=== PATIENT | male | born 1965 | race Caucasian/White ===

== ENCOUNTER 2016-07-07 09:40 | Emergency (ER) | payer BC ==
[~2016-07-07] VITALS: Ht 170.2 cm; Wt 80.0 kg
[~2016-07-07 09:40] MED LIST: ATROPINE 1 MG/10 ML SYRINGE ONE; CA CHLORIDE 10% 10 ML SYRINGE ONE; EPINEPHrine 0.1 MG/ML SYG ONE; ICOS1CAP PO; PITA4TAB PO
[2016-07-07 09:44] VITALS: Ht 170.2 cm; Wt 80.0 kg
[2016-07-07] MEDS ORDERED: FAMOTIDINE 20 MG INJ INJ STA (09:52)
[2016-07-07] MEDS ORDERED: morphine 2 MG INJ IV STA (09:52)
[2016-07-07] MEDS ORDERED: ONDANSETRON 4 MG INJ IV STA (09:52)
[2016-07-07] MEDS ORDERED: SOD CHLORIDE 0.9% 1,000 ML IV STA (09:52)
[2016-07-07] MEDS ORDERED: NYST1000 PO (10:27)
[2016-07-07] MEDS ORDERED: DIPH12.59 PO (10:28)
[2016-07-07] MEDS ORDERED: LIDO20SO19 MM (10:28)
[2016-07-07] MEDS ORDERED: CAPE500T11 PO (10:30)
[2016-07-07] MEDS ORDERED: ONDA8TAB83 PO (10:30)
[2016-07-07 10:31] LABS: ALBUMIN 3.3 g/dl (3.3-4.9)
[2016-07-07] MEDS ORDERED: AMLO1TAB68 PO (10:31)
[2016-07-07 10:32] LABS: POTASSIUM 3.1 mmol/L (3.5-5.1)
[2016-07-07 10:34] LABS: ALBUMIN/GLOBULIN RATIO 1.32; BILIRUBIN,DIRECT 2.1 mg/dl (0.00-0.20); BILIRUBIN,INDIRECT 1.8 mg/dl (0-1.1); BILIRUBIN,TOTAL 3.9 mg/dl (0.2-1.3); CREATININE 1.54 mg/dl (0.61-1.24); TOTAL PROTEIN 5.8 g/dl (6.1-8.1)
[2016-07-07 10:35] LABS: CALCIUM 7.8 mg/dl (8.4-10.2)
[2016-07-07 10:38] LABS: INR 3.37; PROTIME 34.6 Sec (12.2-14.2); PT RATIO 2.7
[2016-07-07 10:39] LABS: PARTIAL THROMBOPLASTIN TIME 41.7 Sec (25.0-35.0)
[2016-07-07 10:46] LABS: TROPONIN-I 0.033 ng/ml (0.00-0.12)
[2016-07-07] MEDS ORDERED: SODIUM CHLORIDE 0.9% 1L BAG IV* STA (10:46)
[2016-07-07] MEDS ORDERED: PIPER-TAZO 3.375 GM IV (PMX) 100 ML IVPB STA (10:46)
[2016-07-07 11:52] LABS: HEMATOCRIT 43.9 % (42.0-52.0); HEMOGLOBIN 14.9 g/dl (14.0-18.0); MEAN CORPUSCULAR HEMOGLOBIN 26.5 pg (29.0-33.0); MEAN CORPUSCULAR HGB CONC 33.9 g/dl (32.0-37.0); MEAN CORPUSCULAR VOLUME 78.3 fl (82.0-101.0); RED BLOOD COUNT 5.61 10^6/ul (4.70-6.10)
--- NOTE | 2016-07-07 11:58 | RADRPT ---
PROCEDURE: US Abdomen (right upper quadrant). CLINICAL INDICATION: Elevated liver enzymes. TECHNIQUE: Multiple real-time longitudinal and transverse images of the right upper quadrant of th e abdomen were acquired utilizing a curved array transducer. Images were reviewed on a high-resoluti on PACS workstation. COMPARISON: None FINDINGS: The liver is normal in size and diffusely increased in echogenicity. There is no focal hepatic lesion. The gallbladder is normal with no stones or wall thickening. There is no pericholecystic fluid katelyn ection. The bile ducts are normal with the common bile duct measuring 2.4 mm in diameter. The visualized portions of the pancreas are unremarkable with obscuration of the tail of the pancrea s. No free fluid is present. The right kidney measures 10.3 x 5.0 x 5.7 cm. There is normal echogenicity of the right kidney. There is no perinephric fluid collection. No hydronephrosis, mass, or calculus is seen. IMPRESSION: 1. Fatty metamorphosis of the liver. 2. Otherwise normal right upper quadrant abdomen ultrasound. RPTAT: QQ .Chemo Talavera MD, MD Date Time Electronically viewed and signed by .Chemo Talavera MD, on 07/07/2016 11:57 .R/
[2016-07-07 12:00] LABS: CONDITION 1; LH ANALYZER COMMENTS 1; MEAN PLATELET VOLUME 7.8 fl (7.4-10.4)
[2016-07-07 12:03] LABS: PLATELET COUNT 20 10^3/UL (140-440)
--- NOTE | 2016-07-07 13:11 | RADRPT ---
PROCEDURE: CT Abdomen and Pelvis without contrast CLINICAL INDICATION: Syncopal episode lasting more than 10 days ago hematemesis, nausea/vomiting TECHNIQUE: Transaxial images were obtained through the abdomen and pelvis on a multi-slice scanner without the intravenous contrast administration. No oral contrast had previously been given. Sagit steven and coronal re-formations were subsequently reconstructed. One or more of the following dose reduction techniques were used: - Automated exposure control. - Adjustment of the mA and/or kV according to patient size. - Use of iterative reconstruction technique. Radiation dose: CTDIvol = 15.17 mGy; DLP = 1000.54 mGy-cm. COMPARISON: Comparison to 05/02/2016 FINDINGS: Lung bases: Discoid atelectasis is seen at the lung bases posteriorly greater on the left than the r ight. No pleural fluid accumulation is evident. Liver: The liver is enlarged and diffusely fatty infiltrated with no focal lesion identified. Gallbladder: The gallbladder lumen is dense but no stone is identified and the wall is not thickened . Bile ducts: The intra and extrahepatic bile ducts are normal in caliber. Pancreas: Appears normal with no mass or inflammation evident. Spleen: Normal in size with no focal lesion. Adrenals: Normal with no mass identified. Kidneys, ureters and bladder: The kidneys are normal in size and there is no mass, pathological calc ification, or hydronephrosis evident. There is no perinephric stranding. The ureters are normal in c aliber and no ureteroliths are identified. The bladder appears unremarkable. Reproductive organs: The prostate is not enlarged. Stomach and bowel: There appears to been a previous right hemicolectomy with a staple line seen at t he right colon. There is no evidence of bowel obstruction or inflammation. The stomach appears unr emarkable. Appendix: The vermiform appendix is not identified. Peritoneum: No free intraperitoneal fluid or air is identified. There is a small fat containing righ t inguinal hernia. Aorta: Normal in caliber with no aneurysmal dilatation. IVC: Unremarkable. Lymph nodes: No pathologically enlarged nodes are identified. Osseous structures: Mild degenerative endplate changes are seen to the spine. Soft tissues: There is stranding within the subcutaneous fat within the right anterior abdomen which likely represents postsurgical change. IMPRESSION: 1. Since the previous CT of 05/02/2016, the right colon has been resected. There is presently no e vidence of bowel obstruction or inflammation. 2. The liver remains mildly enlarged but no as extensively more diffusely fatty infiltrated. No fo efrain lesion is evident. 3. There is no longer a trace of free intraperitoneal fluid. 4. Discoid atelectasis is seen at the lung bases. 5. Otherwise, stable and unremarkable CT scan of the abdomen and pelvis without contrast. Physician Daiana Date Time Electronically viewed and signed by Jose Proctor Physician on 07/07/2016 13:10 /
[2016-07-07 13:32] LABS: LYMPHOCYTES # 0.7 10^3/ul (0.8-2.9); NEUTROPHIL # 0.2 10^3/ul (1.6-7.5)
[2016-07-07 13:34] LABS: ANISOCYTOSIS 1+; MICROCYTOSIS 1+
[2016-07-07 13:35] LABS: PLATELET ESTIMATE PLT APPEAR DECREASED
[2016-07-07] MEDS ORDERED: VANCOMYCIN 1 GM (PMX) 250 ML IVPB SCH (14:00)
[2016-07-07 14:01] LABS: ADD UMIC YES; URINE BILIRUBIN (Dip) NEGATIVE (NEGATIVE); URINE BLOOD (Dip) 3+ (NEGATIVE); URINE COLOR LT. YELLOW (YELLOW); URINE GLUCOSE (Dip) NEGATIVE (NEGATIVE); URINE KETONES (Dip) NEGATIVE (NEGATIVE); URINE LEUKOCYTE ESTERASE (Dip) NEGATIVE (NEGATIVE); URINE NITRITE (Dip) NEGATIVE (NEGATIVE); URINE TOTAL PROTEIN (Dip) 2+ (NEGATIVE); URINE UROBILINOGEN (Dip) 0.2 E.U./dL (0.1-1.0)
[2016-07-07 14:15] LABS: BACTERIA,URINE MODERATE; URINE RBCS 0-2 /HPF ([, 0])
[2016-07-07] MEDS ORDERED: morphine 4 MG/ML VIAL IV STA (14:25)
[2016-07-07] MEDS ORDERED: POTASSIUM CHLORIDE (SR) 20 MEQ TAB PO STA (15:14)
--- NOTE | 2016-07-07 15:33 | ERA ---
ER Documentation Chief Complaint Date/Time DATE: 07/07/16 TIME: 15:11 Chief Complaint syncopal episode today, last chemo 10 days ago, hematemesis x1,melenas HPI This 50-year-old male presented today with hematemesis described as dark almost black vomit, he is also had dark stools lately. Also had a syncopal episode today in which he was sitting on the toilet and fell to his side slightly. He did not fall off the toilet does not think he hit his head. He last had chemotherapy 10 days ago for colon cancer which is also had a resection of. He does abdominal pain upper abdomen as well as in the right midabdomen. Described as a sharp pain. Does have nausea. He feels generally weak tired and "sick". Has had chills but denies fevers. Denies chest pain shortness of breath ROS All systems reviewed and are negative except as per history of present illness. Medications Home Meds Reported Medications Amlodipine Bes/Olmesartan Med (Pat 5-20 mg Tablet) 1 Each Tablet, 1 EACH PO DAILY, TAB 07/07/16 Ondansetron Hcl* (Ondansetron Hcl*) 8 Mg Tablet, 8 MG PO Q8 Y for NAUSEA AND/OR VOMITING, TAB 07/07/16 Capecitabine* (Xeloda*) 500 Mg Tablet, 1500 MG PO BID, TAB TAKE TWO WEEKS OFF 07-06-16 TO 07-20-16 07/07/16 Lidocaine (Lidocaine Viscous) 100 Ml Soln, 5 ML MM Q6 07/07/16 Diphenhydramine Hcl* (Diphenhydramine Hcl*) 12.5 Mg/5 Ml Elixir, 5 ML PO Q6H, ML 07/07/16 Nystatin (Nystatin) 100,000 Unit/1 Ml Oral.susp, 5 ML PO QID, #60 ML 07/07/16 Discontinued Reported Medications Icosapent Ethyl (VASCEPA) 1 Gm Capsule, 1 GM PO DAILY, CAP 05/03/16 Pitavastatin Calcium (Livalo) 4 Mg Tablet, 4 MG PO DAILY, TAB 05/03/16 Allergies Allergies: Coded Allergies: No Known Drug Allergies (Verified Allergy, Unknown, 05/03/16) PMhx/Soc History of Surgery: Yes (refer to EMR) Anesthesia Reaction: No Hx Neurological Disorder: No Hx Respiratory Disorders: No Hx Cardiac Disorders: Yes (HTN;HIGH CHOLESTEROL) Hx Psychiatric Problems: No Hx Miscellaneous Medical Probl: Yes (refer to EMR) Hx Alcohol Use: No Hx Substance Use: No Hx Tobacco Use: No Smoking Status: Never smoker Physical Exam Vitals Vital Signs Date Time Temp Pulse Resp B/P Pulse Ox O2 Delivery O2 Flow Rate FiO2 07/07/16 13:33 98.0 103 16 90/56 99 Room Air 07/07/16 11:21 98.0 85 18 84/57 99 Room Air 07/07/16 10:15 Nasal Cannula 2 07/07/16 09:44 98.1 120 20 90/48 99 Physical Exam Const: [] Mild distress, ill-appearing Head: Atraumatic Eyes: Normal Conjunctiva, EOMI, PERRLA ENT: Normal External Ears, Nose and Mouth. No evidence of bleeding and mouth does have a bright red tongue and bright red lips. Neck: Full range of motion..~ No meningismus. Resp: Decreased bibasilar breath sounds with good air movement. Cardio: Regular tachycardia no murmurs Abd: Soft, epigastric tenderness and moderate right abdominal tenderness, mildly distended, tympanic. Normal bowel sounds Skin: No petechiae or rashes Back: No midline or flank tenderness Ext: No cyanosis, or edema Neur: Awake and alert and oriented 3, cranial nerves II through XII intact, moves all 4 extremities with good coordination purposeful movement Psych: Normal Mood and Affect Result Diagram: 07/07/16 1119 07/07/16 1015 Results 24 hrs Laboratory Tests Test 07/07/16 10:15 07/07/16 11:19 07/07/16 12:55 07/07/16 13:30 Alanine Aminotransferase (ALT/SGPT) 307IU/L Albumin 3.3g/dl Albumin/Globulin Ratio 1.32 Alkaline Phosphatase 88IU/L Anion Gap 21 Aspartate Amino Transf (AST/SGOT) 299IU/L Blood Urea Nitrogen 41mg/dl Calcium Level 7.8mg/dl Carbon Dioxide Level 17mmol/L Chloride Level 94mmol/L Creatinine 1.54mg/dl Direct Bilirubin 2.10mg/dl Globulin 2.50g/dl Glucose Level 160mg/dl Indirect Bilirubin 1.8mg/dl Lactic Acid Level 5.1mmol/L 4.2mmol/L Potassium Level 3.1mmol/L Sodium Level 129mmol/L Total Bilirubin 3.9mg/dl Total Protein 5.8g/dl Troponin I 0.033ng/ml Activated Partial Thromboplast Time 41.7Sec Anisocytosis 1+ Band Neutrophils % 4.0% Blood Morphology Comment Eosinophils # 0.010^3/ul Eosinophils % 2.0% Hematocrit 43.9% Hemoglobin 14.9g/dl INR International Normalized Ratio 3.37 Large Platelets OCCASIONAL Lymphocytes # 0.710^3/ul Lymphocytes % 72.0% Mean Corpuscular Hemoglobin 26.5pg Mean Corpuscular Hemoglobin Concent 33.9g/dl Mean Corpuscular Volume 78.3fl Mean Platelet Volume 7.8fl Microcytosis 1+ Monocytes # 0.010^3/ul Monocytes % 4.0% Neutrophils # 0.210^3/ul Neutrophils % 18.0% Platelet Count 2010^3/UL Platelet Estimate PLT APPEAR DECREASED Prothrombin Time 34.6Sec Prothrombin Time Ratio 2.7 Red Blood Count 5.6110^6/ul Red Cell Distribution Width 14.0% White Blood Count 1.010^3/ul Urine Bacteria MODERATE Urine Bilirubin NEGATIVE Urine Clarity CLEAR Urine Coarse Granular Casts FEW Urine Color LT. YELLOW Urine Glucose NEGATIVE% Urine Hemoglobin 3+ Urine Ketones NEGATIVE Urine Leukocyte Esterase NEGATIVE Urine Microscopic RBC 0-2/HPF Urine Microscopic WBC 2-5/HPF Urine Nitrite NEGATIVE Urine Specific [place] 1.025 Urine Total Protein 2+ Urine Urobilinogen 0.2 E.U./dL Urine pH 6.0 Current Medications Medications (Trade) Dose Ordered Sig/Viktoriya Route PRN Reason Start Time Stop Time Status Last Admin Dose Admin Sodium Chloride (NS) 1,000 ml @ 1,000 mls/hr Q1H STAT IV 07/07/16 09:52 07/07/16 10:51 DC 07/07/16 10:25 Famotidine (Pepcid Iv) 20 mg ONCE STAT INJ 07/07/16 09:52 07/07/16 09:53 DC 07/07/16 10:24 Ondansetron HCl (Zofran Inj) 4 mg ONCE STAT IV 07/07/16 09:52 07/07/16 09:53 DC 07/07/16 10:24 Morphine Sulfate (morphine) 2 mg ONCE STAT IV 07/07/16 09:52 1/14/17 09:54 DC 07/07/16 10:25 Sodium Chloride 2480 ml 2,480 ml BOLUS OVER 2 HOURS STAT IV* 07/07/16 10:46 07/07/16 10:49 DC 07/07/16 11:09 Piperacillin Sod/ Tazobactam Sod 100 ml @ 200 mls/hr ONCE STAT IVPB 07/07/16 10:46 07/07/16 11:15 DC 07/07/16 11:09 Vancomycin HCl (Vancocin) 250 ml @ 125 mls/hr ONCE IVPB 07/07/16 14:00 07/07/16 15:59 07/07/16 14:15 Morphine Sulfate (morphine) 4 mg ONCE STAT IV 07/07/16 14:25 07/07/16 14:26 DC 07/07/16 14:29 Procedures/MDM Very ill-appearing male with the neutropenia very low platelets. No evidence of active bleeding currently. Patient with very stable hemoglobin likely partly secondary to dehydration. Patient has elevated lactic acid and calor tachycardia giving evidence of sepsis as the patient has virtually no immune system currently. He was covered with vancomycin and Zosyn as well as sepsis does IV fluids. He was mildly hypotensive on one reading. He does have a port originally referred to be given if necessary. I see no indication to give platelets at this time his wrist or not the etiology of his low platelets is simply bone marrow suppression secondary to chemotherapy and there is no evidence of active bleeding currently. Hemoglobin is stable I will likely be tract and will likely receive a GI workup as an inpatient. Lactic acid is improving with fluid administration. Nausea resolved with Zofran into Mill grams of morphine helped his pain initially. He did have return of some pain was given 4 mg of morphine which removed his abdominal pain. Has mild hypokalemia did not want to swallow of potassium pill and so was given IV piggyback potassium in the emergency room. This patient is ill-appearing, septic without source and made mention E Juan Alberto fed through his port believe that the ICU is the best place for him at this point. Multiple calls them placed to Dr. Muniz without return of calls. She phone call for his admission will be left to the oncoming ER doctor. ED head is also pending. filament welder interpretation: Initial sinus tachycardia followed by normal sinus rhythm in the 90s EKG interpretation: Sinus tachycardia rate of 108, normal axis, no ST or T-wave changes concerning for acute ischemia CT Abdomen pelvis interpretation: Essentially unchanged from prior, I see no acute process, patient has enlarged liver that was present prior. I see no evidence of perforation, bowel obstruction, abnormal fat stranding or acute fracture Gallbladder ultrasound read a precaution interpretation: Hepatic stated ptosis with no evidence of free fluid or other acute process. Critical care time 44 minutes: This includes the treatment of sepsis in a neutropenic patient appears very ill, careful fluid administration, early antibiotic administration, chart review, discussion sign out other ER doctor, consideration of invasive procedures and pressor use, discussion with family and patient, multiple visits the patient's bedside to reassess his status and check for any signs of bleeding. Does not include any billable procedures. Perfusion Reassessment for Septic Shock: Temp 98.1, Pulse 96, RR 19, BP 103/62 Heart Exam: No murmurs, regular rate and rhythm Lung Exam: No Crackles Capillary Refill: Less than 1 second Peripheral Pulses: Radially present Skin: Pale Departure Diagnosis: Primary Impression: Septic shock Additional Impressions: Neutropenia GI bleed Renal insufficiency Dehydration Acute abdominal pain Hypokalemia Hyponatremia Syncope Thrombocytopenia Condition: Critical ANN-MARIE BERNSTEIN DO Jul 07, 2016 15:24
--- NOTE | 2016-07-07 16:12 | RADRPT ---
PROCEDURE: CT Brain without contrast. CLINICAL INDICATION: Syncope TECHNIQUE: Routine CT scan of the brain was performed on a high resolution multi detector scanner without intravenous contrast. One or more of the following dose reduction techniques were used: Auto mated exposure control; Adjustment of the mA and/or kV according to patient size; Use of iterative r econstruction technique. CTDI = 44 mGy. DLP = 720 mGy-cm. COMPARISON: No prior relevant examinations are available for comparison. FINDINGS: Hemorrhage: No evidence of intracranial hemorrhage. Acute ischemic changes: No evidence of acute ischemic changes. Mass effect/Midline shift: None. Parenchymal volume: Within normal limits for age. Ventricular system: Concordant with parenchymal volume. Chronic changes: Parenchymal attenuation is within normal limits. Extracranial soft tissues: Unremarkable. Calvarium: No fractures. Paranasal sinuses: Visualized paranasal sinuses are clear. Mastoid air cells: Visualized mastoid air cells are clear. IMPRESSION: No acute intracranial abnormalities. Normal appearance the brain parenchyma. RPTAT: AADD .Tremaine Mckeon MD, MD Date Time Electronically viewed and signed by .Tremaine Mckeon MD, on 07/07/2016 16:12 .B/
[2016-07-07] MEDS ORDERED: NORepinephrine 8MG/250 ML (PMX 250 ML IV STA (16:43)
[2016-07-07] MEDS ORDERED: POTASSIUM CHLORIDE 30 MEQ in SOD CHLORIDE 0.9% 150 ML IVPB ONE (17:00)
--- NOTE | 2016-07-07 17:42 | HP ---
Date/Time of Note Date/Time of Note DATE: 07/07/16 TIME: 17:37 Assessment/Plan VTE Prophylaxis VTE Prophylaxis Intervention: SCD's VTE Contraindication Reason: thrombocytopenia Assessment/Plan Assessment/Plan 1. Syncopy 2/2 #2 1. Systemic shock : septic? 2. Hematemesis: no further episodes so far 3. Severe Leucopenia + thrombocytopenia:?Chemo induced 4. Lactic acidosis 5. hepatitis with hyperbilirubinemia ?2/2 Fatty liver 6. hyponatremia and hypokalemia 7. Acute renal insufficiency: prerenal likely 2/2 #2 8. Coagulopathy ?2/2 #5 9. ?UTI 10. Falsely elevated hgb likely 2/2 hemoconcentration PLAN Serial labs/ broad spectrum abx / olivares cultures / aggressive fluid hydration Platelet transfusion if indicated / neutropenic precautions/ hematology and GI consult ?Neupogen : defer to heme Monitor Lactic acid, coag profile and transaminases IV pecid BID / SCDs Further evaluation and treatment will be based on clinical course Full discussion with care team done. All questions Answered Please also see orders. Total time spent on this evaluation >35mins HPI/ROS Admit Date/Time Admit Date/Time 07/07/15 Hx of Present Illness PRESENTING COMPLAINT: Syncopal episode. hematemesis HISTORY OF PRESENTING COMPLAINT:This 50-year-old male presented today with hematemesis described as dark almost black vomit, he is also had dark stools lately. Also had a syncopal episode today in which he was sitting on the toilet and fell to his side slightly. He did not fall off the toilet does not think he hit his head. He last had chemotherapy 10 days ago for colon cancer which is also had a resection of. He does abdominal pain upper abdomen as well as in the right midabdomen. Described as a sharp pain. Does have nausea. He feels generally weak tired and "sick". Has had chills but denies fevers. Denies chest pain shortness of breath ROS 12 point review if systems was done and pertinent findings are as noted. PMH/Family/Social Past Medical History * Colon CA on chemo * HTN * Dyslipidemia Past Surgical History * right-sided hemicolectomy for colon cancer at the hepatitic flexure. * left groin hernia repair with mesh as well as also hydrocele surgery and also nasal septum surgery in the past. Family History Significant Family History: diabetes Social History Smoking Status: Never smoker Exam/Review of Systems Vital Signs Vitals VS - Last 72 Hours, by Label Date Time Temp Pulse Resp B/P Pulse Ox O2 Delivery O2 Flow Rate FiO2 07/07/16 17:20 98.0 116 16 52/31 99 Room Air 07/07/16 13:33 98.0 103 16 90/56 99 Room Air 07/07/16 11:21 98.0 85 18 84/57 99 Room Air 07/07/16 10:15 Nasal Cannula 2 07/07/16 09:44 98.1 120 20 90/48 99 Vital Signs Date Time Temp Pulse Resp B/P Pulse Ox O2 Delivery O2 Flow Rate FiO2 07/07/16 17:20 98.0 116 16 52/31 99 Room Air 07/07/16 10:15 2 Exam Constitutional: alert, oriented, other (ill looking) Psych: anxiety Eyes: PERRL, icteric ENMT: No mucosa pink and moist Respiratory: clear to auscultation, diminished breath sounds Cardiovascular: regular rate and rhythm, No murmurs/extra sounds Gastrointestinal: bowel sounds, soft, tender (epigastrium), No distended Extremities: No edema Neurological: lethargic Labs Result Diagram: 07/07/16 1119 07/07/16 1015 Medications Medications Current Medications Potassium Chloride/Sodium Chloride (KCl/NS) 165 ml @ 55 mls/hr ONCE ONCE IVPB Last administered on 07/07/16t 16:19; Admin Dose 55 MLS/HR; Start 07/07/16 at 17:00; Stop 07/07/16 at 19:59 Procedures Procedures Laboratory Tests Test 07/07/16 10:15 07/07/16 11:19 07/07/16 12:55 07/07/16 13:30 Alanine Aminotransferase (ALT/SGPT) 307IU/L Albumin 3.3g/dl Albumin/Globulin Ratio 1.32 Alkaline Phosphatase 88IU/L Anion Gap 21 Aspartate Amino Transf (AST/SGOT) 299IU/L Blood Urea Nitrogen 41mg/dl Calcium Level 7.8mg/dl Carbon Dioxide Level 17mmol/L Chloride Level 94mmol/L Creatinine 1.54mg/dl Direct Bilirubin 2.10mg/dl Globulin 2.50g/dl Glucose Level 160mg/dl Indirect Bilirubin 1.8mg/dl Lactic Acid Level 5.1mmol/L 4.2mmol/L Potassium Level 3.1mmol/L Sodium Level 129mmol/L Total Bilirubin 3.9mg/dl Total Protein 5.8g/dl Troponin I 0.033ng/ml Activated Partial Thromboplast Time 41.7Sec Anisocytosis 1+ Band Neutrophils % 4.0% Blood Morphology Comment Eosinophils # 0.010^3/ul Eosinophils % 2.0% Hematocrit 43.9% Hemoglobin 14.9g/dl INR International Normalized Ratio 3.37 Large Platelets OCCASIONAL Lymphocytes # 0.710^3/ul Lymphocytes % 72.0% Mean Corpuscular Hemoglobin 26.5pg Mean Corpuscular Hemoglobin Concent 33.9g/dl Mean Corpuscular Volume 78.3fl Mean Platelet Volume 7.8fl Microcytosis 1+ Monocytes # 0.010^3/ul Monocytes % 4.0% Neutrophils # 0.210^3/ul Neutrophils % 18.0% Platelet Count 2010^3/UL Platelet Estimate PLT APPEAR DECREASED Prothrombin Time 34.6Sec Prothrombin Time Ratio 2.7 Red Blood Count 5.6110^6/ul Red Cell Distribution Width 14.0% White Blood Count 1.010^3/ul Urine Bacteria MODERATE Urine Bilirubin NEGATIVE Urine Clarity CLEAR Urine Coarse Granular Casts FEW Urine Color LT. YELLOW Urine Glucose NEGATIVE% Urine Hemoglobin 3+ Urine Ketones NEGATIVE Urine Leukocyte Esterase NEGATIVE Urine Microscopic RBC 0-2/HPF Urine Microscopic WBC 2-5/HPF Urine Nitrite NEGATIVE Urine Specific [place] 1.025 Urine Total Protein 2+ Urine Urobilinogen 0.2 E.U./dL Urine pH 6.0 Test 07/07/16 15:10 Lactic Acid Level 2.9mmol/L PROCEDURE: CT Abdomen and Pelvis without contrast CLINICAL INDICATION: Syncopal episode lasting more than 10 days ago hematemesis , nausea/vomiting TECHNIQUE: Transaxial images were obtained through the abdomen and pelvis on a multi-slice scanner without the intravenous contrast administration. No oral contrast had previously been given. Sagittal and coronal re-formations were subsequently reconstructed. One or more of the following dose reduction techniques were used: - Automated exposure control. - Adjustment of the mA and/or kV according to patient size. - Use of iterative reconstruction technique. Radiation dose: CTDIvol = 15.17 mGy; DLP = 1000.54 mGy-cm. COMPARISON: Comparison to 05/02/2016 FINDINGS: Lung bases: Discoid atelectasis is seen at the lung bases posteriorly greater on the left than the right. No pleural fluid accumulation is evident. Liver: The liver is enlarged and diffusely fatty infiltrated with no focal lesion identified. Gallbladder: The gallbladder lumen is dense but no stone is identified and the wall is not thickened. Bile ducts: The intra and extrahepatic bile ducts are normal in caliber. Pancreas: Appears normal with no mass or inflammation evident. Spleen: Normal in size with no focal lesion. Adrenals: Normal with no mass identified. Kidneys, ureters and bladder: The kidneys are normal in size and there is no mass, pathological calcification, or hydronephrosis evident. There is no perinephric stranding. The ureters are normal in caliber and no ureteroliths are identified. The bladder appears unremarkable. Reproductive organs: The prostate is not enlarged. Stomach and bowel: There appears to been a previous right hemicolectomy with a staple line seen at the right colon. There is no evidence of bowel obstruction or inflammation. The stomach appears unremarkable. Appendix: The vermiform appendix is not identified. Peritoneum: No free intraperitoneal fluid or air is identified. There is a small fat containing right inguinal hernia. Aorta: Normal in caliber with no aneurysmal dilatation. IVC: Unremarkable. Lymph nodes: No pathologically enlarged nodes are identified. Osseous structures: Mild degenerative endplate changes are seen to the spine. Soft tissues: There is stranding within the subcutaneous fat within the right anterior abdomen which likely represents postsurgical change. IMPRESSION: 1. Since the previous CT of 05/02/2016, the right colon has been resected. There is presently no evidence of bowel obstruction or inflammation. 2. The liver remains mildly enlarged but no as extensively more diffusely fatty infiltrated. No focal lesion is evident. 3. There is no longer a trace of free intraperitoneal fluid. 4. Discoid atelectasis is seen at the lung bases. 5. Otherwise, stable and unremarkable CT scan of the abdomen and pelvis without contrast. Jose Proctor Physician Date Time Electronically viewed and signed by Jose Proctor Physician on 07/07/2016 13:10 PROCEDURE: CT Brain without contrast. CLINICAL INDICATION: Syncope TECHNIQUE: Routine CT scan of the brain was performed on a high resolution multi detector scanner without intravenous contrast. One or more of the following dose reduction techniques were used: Automated exposure control; Adjustment of the mA and/or kV according to patient size; Use of iterative reconstruction technique. CTDI = 44 mGy. DLP = 720 mGy-cm. COMPARISON: No prior relevant examinations are available for comparison. FINDINGS: Hemorrhage: No evidence of intracranial hemorrhage. Acute ischemic changes: No evidence of acute ischemic changes. Mass effect/Midline shift: None. Parenchymal volume: Within normal limits for age. Ventricular system: Concordant with parenchymal volume. Chronic changes: Parenchymal attenuation is within normal limits. Extracranial soft tissues: Unremarkable. Calvarium: No fractures. Paranasal sinuses: Visualized paranasal sinuses are clear. Mastoid air cells: Visualized mastoid air cells are clear. IMPRESSION: No acute intracranial abnormalities. Normal appearance the brain parenchyma. RPTAT: AADD .Tremaine Brunengraber, MD, Date Time Electronically viewed and signed by .Tremaine Mckeon MD, MD on 07/07/2016 16:12 PROCEDURE: US Abdomen (right upper quadrant). CLINICAL INDICATION: Elevated liver enzymes. TECHNIQUE: Multiple real-time longitudinal and transverse images of the right upper quadrant of the abdomen were acquired utilizing a curved array transducer. Images were reviewed on a high-resolution PACS workstation. COMPARISON: None FINDINGS: The liver is normal in size and diffusely increased in echogenicity. There is no focal hepatic lesion. The gallbladder is normal with no stones or wall thickening. There is no pericholecystic fluid collection. The bile ducts are normal with the common bile duct measuring 2.4 mm in diameter. The visualized portions of the pancreas are unremarkable with obscuration of the tail of the pancreas. No free fluid is present. The right kidney measures 10.3 x 5.0 x 5.7 cm. There is normal echogenicity of the right kidney. There is no perinephric fluid collection. No hydronephrosis, mass, or calculus is seen. IMPRESSION: 1. Fatty metamorphosis of the liver. 2. Otherwise normal right upper quadrant abdomen ultrasound. RPTAT: QQ .Chemo Talavera MD, Date Time Electronically viewed and signed by .Chemo Talavera MD, on 07/07/2016 11:57 FAIZA STEEL Jul 07, 2016 17:42
[2016-07-07] MEDS ORDERED: SOD CHLORIDE 0.9% 1,000 ML IV SCH (18:00)
[2016-07-07] MEDS ORDERED: DIPHENHYDRAMINE 2.5 MG/ML PO SYG PO PRN (18:00)
[2016-07-07] MEDS ORDERED: ACETAMINOPHEN 325 MG TAB PO PRN (18:00)
[2016-07-07] MEDS ORDERED: ONDANSETRON 4 MG INJ IV PRN (18:00)
[2016-07-07] MEDS ORDERED: PANTOPRAZOLE 40 MG INJ IV SCH (18:00)
[2016-07-07] MEDS ORDERED: VANCOMYCIN IV PER PHARMACY XX SCH (18:00)
[2016-07-07] MEDS: PIPER-TAZO 3.375 GM IV (PMX) 100 ML IVPB SCH (18:12)
[2016-07-07] MEDS ORDERED: D5-LR + KCL 20 MEQ 1,000 ML IV SCH (19:30)
--- NOTE | 2016-07-07 19:40 | CONS ---
Date/Time of Note Date/Time of Note DATE: 07/07/16 TIME: 19:35 Assessment/Plan Assessment/Plan Chief Complaint/Hosp Course Assessment 1. coffee ground emesis: no further episodes. Normal h/h likely due to hemoconcentration. Will need repeat h/h after IVF resuscitationi to determine true h/h. 2. Leukopenia, thrombocytopenia, and coagulopathy secondary to chemotherapy and sepsis. 3. Systemic shock : septic, r/o opportunistic infection eg CMV due to immunosuppression 4. Lactic acidosis: resolving 5. hepatitis with hyperbilirubinemia: ddx including shock liver secondary to sepsis, fatty liver, vs reactivation of viral hepatitis secondary to immunosuppression 6. hyponatremia and hypokalemia 7. Acute renal insufficiency: prerenal likely 2/2 #2 8. microcytosis: r/o iron deficiency PLAN 1. transfuse with blood products to keep PLT > 50 and INR less than 1.5 if another episode of coffee ground emesis 2. agree with broad spectrum abx with zosyn for now. Recommend ID consult to determine whether patient need fungal and viral coverage and whether current antibiotic needed to be expanded given his leukopenia and immunosuppression. 3. I changed IVF to have KCL as additive for hypokalemia. Need aggressive fluid resuscitation. 4. neutropenic precautions 5. hematology eval for chemo, leukopenia and thrombocytopenia 6. check acute hapatitis panel to r/o viral hepatitis and possible reactivation due to leukopenia 7. if another episode of overt gib (hematemesis, coffee ground emesis) with drop in h/h, change protonix to gtt and immediately transfuse with FFP and platelets to parameter as defined by #1 above. Thus please type and cross now. 8. consider emergent EGD if continued GIB and if coagulopathy and thrombocytopenia corrected to #1 above. 9. dose of vitamin K now 10. check iron panel tomorrow AM, if low replete with IV iron 11. r/o CMV as cause of pt's sepsis due to leukopenia and immunosuppression Problems: Consultation Date/Type/Reason Admit Date/Time 07/07/15 Type of Consultation: GI Reason for Consultation Coffee ground emesis. Hx of Present Illness 50-year-old male presented today with hematemesis described as dark almost black vomit, he is also had dark stools. Associated syncopal episode today in which he was sitting on the toilet and fell to his side slightly but did not hit his head. He last had chemotherapy 10 days ago for colon cancer which is also had a resection of. He does abdominal pain upper abdomen as well as in the right midabdomen without radiation. Described as a sharp pain and persistent. Does have nausea. He feels generally weak tired and "sick". Has had chills but denies fevers. Denies chest pain shortness of breath. No BRBPR, hematochezia. No hematemesis. All point ROS administered, pertinent positives and negatives in HPI otherwise negative. Psychological: anxiety Past Medical History Medical History: high cholesterol, hypertension, other (colon cancer) Past Surgical History Past Surgical Hx: bowel resection, endoscopy, other (right groin hernia repair with mesh) Family History Significant Family History: diabetes Social History Alcohol Use: none Smoking Status: Never smoker Drug Use: none Exam/Review of Systems Vital Signs Vitals Vital Signs Date Time Temp Pulse Resp B/P Pulse Ox O2 Delivery O2 Flow Rate FiO2 07/07/16 18:15 97.9 117 18 90/55 98 Mask 6.0 Exam Constitutional: alert, frail Head: atraumatic, normocephalic Eyes: EOMI, nl conjunctiva, nl lids, nl sclera ENMT: mucosa pink and moist, nl external ears & nose, nl lips & teeth, nl nasal mucosa & septum Neck: non-tender, supple Respiratory: clear to auscultation, diminished breath sounds Cardiovascular: other (tachycardic, no murmurs appreciated) Gastrointestinal: bowel sounds, soft, tender (at epigastric region) Neurological: lethargic Results Result Diagram: 07/07/16 1119 07/07/16 1015 Results 24 hrs Laboratory Tests Test 07/07/16 10:15 07/07/16 11:19 07/07/16 12:55 07/07/16 13:30 Alanine Aminotransferase (ALT/SGPT) 307 H Albumin 3.3 Albumin/Globulin Ratio 1.32 Alkaline Phosphatase 88 Anion Gap 21 H Aspartate Amino Transf (AST/SGOT) 299 H Blood Urea Nitrogen 41 H Calcium Level 7.8 L Carbon Dioxide Level 17 L Chloride Level 94 L Creatinine 1.54 H Direct Bilirubin 2.10 H Globulin 2.50 Glucose Level 160 Indirect Bilirubin 1.8 H Lactic Acid Level 5.1 *H 4.2 *H Potassium Level 3.1 L Sodium Level 129 L Total Bilirubin 3.9 H Total Protein 5.8 L Troponin I 0.033 Activated Partial Thromboplast Time 41.7 H Anisocytosis 1+ Band Neutrophils % 4.0 Blood Morphology Comment Eosinophils # 0.0 Eosinophils % 2.0 Hematocrit 43.9 Hemoglobin 14.9 INR International Normalized Ratio 3.37 Large Platelets OCCASIONAL Lymphocytes # 0.7 L Lymphocytes % 72.0 H Mean Corpuscular Hemoglobin 26.5 L Mean Corpuscular Hemoglobin Concent 33.9 Mean Corpuscular Volume 78.3 L Mean Platelet Volume 7.8 Microcytosis 1+ Monocytes # 0.0 L Monocytes % 4.0 Neutrophils # 0.2 L Neutrophils % 18.0 L Platelet Count 20 #*L Platelet Estimate PLT APPEAR DECREASED Prothrombin Time 34.6 #H Prothrombin Time Ratio 2.7 Red Blood Count 5.61 Red Cell Distribution Width 14.0 White Blood Count 1.0 #L Urine Bacteria MODERATE Urine Bilirubin NEGATIVE Urine Clarity CLEAR Urine Coarse Granular Casts FEW Urine Color LT. YELLOW Urine Glucose NEGATIVE Urine Hemoglobin 3+ H Urine Ketones NEGATIVE Urine Leukocyte Esterase NEGATIVE Urine Microscopic RBC 0-2 Urine Microscopic WBC 2-5 Urine Nitrite NEGATIVE Urine Specific [place] 1.025 Urine Total Protein 2+ H Urine Urobilinogen 0.2 E.U./dL Urine pH 6.0 Test 07/07/16 15:10 Lactic Acid Level 2.9 H Medications Medications Current Medications Potassium Chloride 30 meq/ Sodium Chloride 165 ml @ 55 mls/hr ONCE ONCE IVPB Last administered on 07/07/16 16:19; Admin Dose 55 MLS/HR; Start 07/07/16 at 17 :00; Stop 07/07/16 at 19:59 Sodium Chloride 1,000 ml @ 150 mls/hr Q6H40M IV Last administered on 18:12; Admin Dose 150 MLS/HR; Start 07/07/16 at 18:00; Stop 07/08/16 at 13: 59 Piperacillin Sod/ Tazobactam Sod (Zosyn 3.375gm/ 100 ml (Pmx)) 100 ml @ 100 mls /hr Q6 IVPB Last administered on 07/07/16 18:12; Admin Dose 100 MLS/HR; Start 07/07/16 at 18:00 Pantoprazole (Protonix Iv) 40 mg BID@06,18 IV Last administered on 07/07/16t 18 :12; Admin Dose 40 MG; Start 07/07/16 at 18:00 Ondansetron HCl (Zofran Inj) 4 mg Q6H PRN IV NAUSEA AND/OR VOMITING; Start at 18:00 Docusate Sodium (Colace) 100 mg BID PO ; Start 07/07/16 at 21:00 Acetaminophen (Tylenol Tab) 650 mg Q8H PRN PO PAIN AND OR ELEVATED TEMP; Start 07/07/16 at 18:00 Diphenhydramine HCl (Benadryl Liquid Po Syr) 12.5 mg Q6H PRN PO itching; Start 07/07/16 at 18:00 Nystatin 550388 units 500,000 units QID PO ; Start 07/07/16 at 21:00 Vancomycin HCl (Vancocin) 250 ml @ 125 mls/hr Q12H IVPB ; Start 07/08/16 at 02: 00 CHANDAN CAM MD Jul 07, 2016 19:40
[2016-07-07 19:51] LABS: HEMATOCRIT 41.8 % (42.0-52.0); HEMOGLOBIN 14.5 g/dl (14.0-18.0); MEAN CORPUSCULAR HEMOGLOBIN 26.8 pg (29.0-33.0); MEAN CORPUSCULAR HGB CONC 34.6 g/dl (32.0-37.0); MEAN CORPUSCULAR VOLUME 77.4 fl (82.0-101.0); RED CELL DISTRIBUTION WIDTH 14.2 % (11.5-14.5); UNCORRECTED WBC 0.7 10^3/ul (4.8-10.8); WHITE BLOOD COUNT 0.7 10^3/ul (4.8-10.8)
[2016-07-07] MEDS ORDERED: SOD CHLORIDE 0.9% 250 ML IV* ONE ×2 (19:57→20:09)
[2016-07-07] MEDS ORDERED: D5-NS + KCL 20 MEQ 1,000 ML IV SCH (20:00)
[2016-07-07] MEDS ORDERED: PHYTONADIONE 5 MG in DEXTROSE 5% 50 ML IVPB ONE ×4 (20:00)
[2016-07-07] MEDS ORDERED: PHENYLephrine 40 MG in DEXTROSE 5% 496 ML IV SCH (20:00)
[2016-07-07 20:07] LABS: CONDITION 1; PLATELET COUNT 13 10^3/UL (140-440)
[2016-07-07 20:08] LABS: LH ANALYZER COMMENTS 1
[2016-07-07] MEDS ORDERED: DOCUSATE SODIUM 100 MG CAP PO SCH (21:00)
[2016-07-07] MEDS ORDERED: NYSTATIN SUSP 100000 UNITS/ML 60 ML BTL PO SCH (21:00)
[2016-07-07] MEDS ORDERED: PHENYLephrine 20MG IN 250 ML 250 ML IV SCH (21:00)
[2016-07-07 21:56] LABS: PLATELET COUNT 13 10^3/UL (140-440)
[2016-07-07 21:59] LABS: LYMPHOCYTES # 0.5 10^3/ul (0.8-2.9); NEUTROPHIL # 0.1 10^3/ul (1.6-7.5); PLATELET ESTIMATE PLT APPEAR DECREASED
[2016-07-07] MEDS ORDERED: DOBUTamine/D5W 2 MG/ML DRIP 250 ML IV STA (22:08)
[2016-07-07 22:24] LABS: INR 3.85
[2016-07-07 22:25] LABS: PARTIAL THROMBOPLASTIN TIME 32.2 Sec (25.0-35.0); THROMBIN TIME 14.6 SEC (13.8-19.1)
[2016-07-07 22:28] LABS: D-DIMER 3259.52 ng/ml (<460)
[2016-07-07 22:40] LABS: FIBRIN SPLIT PRODUCT <10 ug/ml (<10)
[2016-07-07 22:41] LABS: PROTIME 38.5 Sec (12.2-14.2)
[2016-07-07 23:00] VITALS: TEMP 98.4
[2016-07-07] MEDS ORDERED: EPINEPHrine 4 MG in DEXTROSE 5% 246 ML IV STA (23:58)
[2016-07-08] MEDS ORDERED: EPINEPHrine 4 MG in SOD CHLORIDE 0.9% 246 ML IV STA (00:07)
[2016-07-08] MEDS: PIPER-TAZO 3.375 GM IV (PMX) 100 ML IVPB SCH (00:55)
[2016-07-08] MEDS ORDERED: LORAZEPAM 2 MG INJ IV STA (01:26)
[2016-07-08] MEDS ORDERED: LORAZEPAM 2 MG INJ ONE (01:28)
[2016-07-08] MEDS ORDERED: VANCOMYCIN 1 GM in NS 250 ML IVPB SCH (02:00)
[2016-07-08] MEDS ORDERED: NORepinephrine 8MG/250 ML (PMX 250 ML ONE (02:33)
[2016-07-08] MEDS ORDERED: DOBUTAMINE ONE (03:58)
[2016-07-08] MEDS ORDERED: D5W ONE (03:58)
[2016-07-08 04:14] VITALS: BP 75/49; PULSE 105; RESP 25
--- NOTE | 2016-07-08 05:54 | EN ---
Date/Time of Note Date/Time of Note DATE: 07/08/16 TIME: 05:47 ER Progress Note HPI: 50-year-old man recently admitted for septic shock, gastrointestinal bleeding, severe thrombocytopenia, and renal insufficiency. He has been on multiple inotropic medications intravenously including epinephrine, norepinephrine, and phenylephrine with continued hypotension. Patient was given FFP and platelet transfusion was ordered from [facility] [place] and is pending. Past medical history: Colon cancer postchemotherapy, hyperlipidemia, hypertension, obesity, hemicolectomy Physical exam: GENERAL: Elderly man unconscious, unresponsive HEENT: Dry mucous membranes, pink conjunctiva, no cervical spine tenderness or step-off deformities, no goiter, no jaundice or icterus, extraocular movements intact without pain. No submandibular induration, and no pharyngeal erythema NEURO: Eyes closed, pupils fixed dilated, moving all extremities, nonverbal CARDIAC: Tachycardic and regular, no murmurs rubs or gallops LUNGS: Clear bilaterally no wheezing crackles or stridor ABDOMEN: Soft nontender, no guarding, no rigidity, no rebound, no psoas sign no obturator sign. Normoactive bowel sounds SKIN: Warm and dry to touch, no abrasions, contusions, or hematomas, no lacerations, no ecchymosis, no target lesions, and without ulcers EXTREMITIES: No clubbing cyanosis, no edema, calves are bilaterally symmetrical , no Homans sign, no popliteal cord sign. Distal pulses equal and bilateral PSYCH: Unable to assess Medical decision making: Just prior to transfer to intensive care unit patient lost pulses. Advanced cardiac life support with chest compressions was started. High-quality chest compressions were performed. Patient was given multiple doses of epinephrine, atropine, and calcium chloride. Please refer to resuscitation log for full list of medications, dosages, and times. Initial rhythm was pulseless electrical activity. Endotracheal Intubation by me: Pre assessment performed. See preceding note for details. Pre-oxygenation performed with 100% oxygen RSI: Performed w/o complication or hypoxic events. Medications as ordered. Blade: Mac 4 ET Tube: 7.5 cm Depth: 24 cm at the lip Intubation confirmed by colorimetric CO2, equal breath sounds, quiet over the stomach. About 30 minutes of advanced cardiac life support was performed, despite my interventions patient did not regain pulses. I pronounced him at 0448 on July 08, 2016. Family members were made aware and were at the bedside. Diagnostic impression: #1 acute neurocardiopulmonary arrest. #2 Colon cancer CHANDAN JOHNSON MD Jul 08, 2016 05:54
--- NOTE | 2016-07-08 10:35 | PREOPHP ---
DATE OF ADMISSION: 07/07/2016 SUMMARY DATE OF : 07/08/2016 PRELIMINARY CAUSE OF : Acute neuro cardiopulmonary arrest. SECONDARY CAUSE OF : 1. Metastatic colon cancer. 2. Chemotherapy-induced severe leukopenia and thrombocytopenia causing #3. 3. Acute gastrointestinal bleed. 4. Acute renal insufficiency. 5. Systemic shock, probably septic, but unable to ascertain prior to . CONSULTS ON THE CASE: Dr. Pj Castellanos for Cardiology as well as Dr. Ashleigh Choi for Hematology/Onco logy. INTERVENTIONS: The patient had a CT scan of the brain that showed no acute abnormalities. CT of th e abdomen and pelvis that showed very significant liver enlargement and fatty infiltration, but no o ther acute abnormalities. Gallbladder ultrasound that showed fatty liver, but otherwise unremarkabl e. HOSPITALIZATION COURSE: Full details are available in chart for review. 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 The patient reports sitting on the toilet seat and passing out, but without falling or hitting hi s head and then was brought to the ER. In the ER, was found to be severely leukopenic as well as gee ve severe thrombocytopenia, but his hemoglobin remained stable even though he had a bandemia. [facility] 1 episode prior to the syncopal episode. He was admitted for further management and was found to have lactic acidosis as well. He was resuscitated in the ER; ho wever, he was found to be hypotensive, requiring pressor support. His hypotension seemed to be resp onding to fluid therapy; however, the patient was admitted to the intensive care unit. However, per report, prior to being transferred to the intensive care unit from the emergency room, the patient went into cardiac arrest, lost a pulse, and advanced cardiac life support with chest compressions we re started. He was managed according to protocol by the emergency room physician. Endotracheally i ntubated. However, despite aggressive interventions, the patient never regained his pulse. He was pronounced at 0448 on 07/08/2016 by the emergency room physician. Dictated By: FAIZA STEEL MD, BA/JULIA Conf#: [id number] [facility]#: [id number]
== END 2016-07-08 11:22 | disposition expired ==
LOC: E/R 09:40
DX: A41.9 Sepsis, unspecified organism (principal); R65.21 Severe sepsis with septic shock; D70.9 Neutropenia, unspecified; K92.2 Gastrointestinal hemorrhage, unspecified; N28.9 Disorder of kidney and ureter, unspecified; E86.0 Dehydration; R10.13 Epigastric pain; E87.6 Hypokalemia; E87.1 Hypo-osmolality and hyponatremia; D69.6 Thrombocytopenia, unspecified; R11.2 Nausea with vomiting, unspecified; I10 Essential (primary) hypertension
CPT/HCPCS: 31500; 36415; 36430; 51702; 70450; 74176; 76705; 80053; 81001; 83605; 84484; 85025; 85049; 85362; 85378; 85384; 85610; 85670; 85730; 86850; 86900; 86901; 87040; 87086; 92950; 93005; 96361; 96365; 96366; 96367; 96375; 96376; 99291; C9113; J0171; J0461; J1250; J2060; J2270; J2370; J2405; J2543; J3370; J3480; J7030; J7040; J7050; J7070; P9059; 81003; 86920